=== PATIENT | female | born 1995 | race Caucasian/White ===

== ENCOUNTER 2018-02-04 10:52 | Emergency (ER) | payer BC ==
[2018-02-04] MEDS ORDERED: NS 1,000 ML IV ONE (11:20)
[2018-02-04] MEDS ORDERED: BENZOCAINE UNIT DOSE SPRAY HURRICAINE MM ONE ×2 (11:20→11:57)
[2018-02-04] MEDS ORDERED: ONDANSETRON 4 MG/2 ML VIAL IVP ONE (11:20)
--- NOTE | 2018-02-04 11:27 | EDPHY ---
H & P Stated Complaint: n/v, ST Time Seen by Provider: 02/04/18 11:14 HPI/ROS: CHIEF COMPLAINT: Vomiting, possible hematemesis HISTORY OF PRESENT ILLNESS: 22-year-old female generally healthy with no coagulopathic disorder, no history of chronic abdominal issues, arrives via private vehicle. She states that she ate a normal dinner was feeling well yesterday at 1:00 a.m. She woke up with nausea and vomited a black color. She had further episodes of vomiting and noticed a reddish coloration possibly blood. Her boyfriend is with her and looked in her posterior oropharynx and noticed an area of friability on the left tonsil. No abdominal pain. Normal bowel movement this morning. No melena or hematochezia PRIMARY CARE PROVIDER:None REVIEW OF SYSTEMS: 10 systems reviewed and negative with the exception of the elements mentioned in the history of present illness PAST MEDICAL & SURGICAL HISTORY: No pertinent medical or surgical history SOCIAL HISTORY: Nonsmoker PHYSICAL EXAM (Prior to examination, patient consented to physical exam, hands were washed and my usual and customary physical exam procedures followed) 1) GENERAL: Well-developed, well-nourished, alert and oriented. Appears to be in no acute distress. 2) HEAD: Normocephalic, atraumatic 3) HEENT: Pupils equal, round, reactive to light bilaterally. Sclera anicteric. On the patient's left tonsil there is friable tonsillar lesion, Moist Mucous membranes. Ears bilaterally with normal tympanic membranes. No evidence of otitis media otitis externa 4) NECK: Full range of motion, no meningeal signs. 5) LUNGS: Clear auscultation bilaterally, no wheezes, no rhonchi, no retractions. 6) HEART: Regular rate and rhythm, no murmur, no heave, no gallop. 7) ABDOMEN: No guarding, no rebound, no focal tenderness, negative McBurney's, negative Oneil's, negative Rovsing's, negative peritoneal sign, 8) MUSCULOSKELETAL: Moving all extremities, no focal areas of tenderness, no obvious trauma. No peripheral edema or discoloration. 9) BACK: No CVA tenderness, no midline vertebral tenderness, no fluctuance, no step-off, no obvious trauma, no visual or palpable abnormality. 10) SKIN: No rash, no petechiae. 11) Psychiatric: Patient is oriented X 3, there is no agitation. DIFFERENTIAL DIAGNOSIS: In no particular order including but not limited to Boerhaaves syndrome, Sejal-Olvera tear bleeding tonsillar lesion, malignancy - Personal History LMP (Females 10-55): Over 28 Days Ago Current Tetanus/Diphtheria Vaccine: Yes Current Tetanus Diphtheria and Acellular Pertussis (TDAP): Yes - Medical/Surgical History Hx Asthma: No Hx Chronic Respiratory Disease: No Hx Diabetes: No Hx Cardiac Disease: No Hx Renal Disease: No Hx Cirrhosis: No Hx Alcoholism: No Hx HIV/AIDS: No Hx Splenectomy or Spleen Trauma: No Other PMH: ear tubes - Social History Smoking Status: Never smoked Constitutional: Initial Vital Signs Temperature (C) 36.8 C 02/04/18 10:57 Heart Rate 88 02/04/18 10:57 Respiratory Rate 16 02/04/18 10:57 Blood Pressure 132/96 H 02/04/18 10:57 O2 Sat (%) 98 02/04/18 10:57 O2 Delivery Mode Room Air Allergies/Adverse Reactions: No Known Allergies Allergy (Unverified 02/04/18 10:56) Home Medications: Medication Instructions Recorded Claritin 02/04/18 LEVONORGESTREL-ETH ESTRA 02/04/18 Ondansetron Odt [Zofran Odt] 4 mg PO Q4PRN PRN #10 tab 02/04/18 Tums 500MG (*) 02/04/18 Medical Decision Making ED Course/Re-evaluation: Patient was re-evaluated with serial exams. She is tolerating oral intake. Normal H&H. Hemodynamically stable. She felt relief with GI cocktail. Doubt acute pancreatitis. Doubt acute surgical abdominal pathology. Doubt GI bleed. Doubt Boerhaave, doubt Sejal-Olvera. Patient is noted to have a friable left tonsillar lesion. I have recommended consultation with Ent. The patient has no primary care provider. Will consult with ear nose and throat 1258 p.m.: Phone consultation with PRAKASH Vazquez with [facility] regarding the patient's left tonsillar lesion which is friable I suspect was a source of active bleeding, currently hemostatic. 1:03 p.m. Patient was re-evaluated with serial examination. She continues to appear well at this time. She feels comfortable being discharged will go directly to [facility] ear nose and throat.. I saw this patient independently based on established practice protocols. Care of patient under supervision of secondary supervising physician Dr Montelongo with whom I discussed case. - Data Points Laboratory Results: Laboratory Results 02/04/18 11:45 02/04/18 11:45 02/04/18 02/04/18 02/04/18 11:45 11:45 11:45 WBC 6.25 10^3/uL 10^3/uL (3.80-9.50) RBC 4.78 10^6/uL 10^6/uL (4.18-5.33) Hgb 14.4 g/dL g/dL (12.6-16.3) Hct 43.0 % % (38.0-47.0) MCV 90.0 fL fL (81.5-99.8) MCH 30.1 pg pg (27.9-34.1) MCHC 33.5 g/dL g/dL (32.4-36.7) RDW 12.7 % % (11.5-15.2) Plt Count 284 10^3/uL 10^3/uL (150-400) MPV 9.6 fL fL (8.7-11.7) Neut % (Auto) 50.3 % % (39.3-74.2) Lymph % (Auto) 38.7 % % (15.0-45.0) Gage % (Auto) 6.2 % % (4.5-13.0) Eos % (Auto) 3.5 % % (0.6-7.6) Baso % (Auto) 0.8 % % (0.3-1.7) Nucleat RBC Rel Count 0.0 % % (0.0-0.2) Absolute Neuts (auto) 3.14 10^3/uL 10^3/uL (1.70-6.50) Absolute Lymphs (auto) 2.42 10^3/uL 10^3/uL (1.00-3.00) Absolute Monos (auto) 0.39 10^3/uL 10^3/uL (0.30-0.80) Absolute Eos (auto) 0.22 10^3/uL 10^3/uL (0.03-0.40) Absolute Basos (auto) 0.05 10^3/uL 10^3/uL (0.02-0.10) Absolute Nucleated RBC 0.00 10^3/uL 10^3/uL (0-0.01) Immature Gran % 0.5 % % (0.0-1.1) Immature Gran # 0.03 10^3/uL 10^3/uL (0.00-0.10) Sodium 140 mEq/L mEq/L (135-145) Potassium 4.3 mEq/L mEq/L (3.3-5.0) Chloride 106 mEq/L mEq/L (97-110) Carbon Dioxide 25 mEq/l mEq/l (22-31) Anion Gap 9 mEq/L mEq/L (8-16) BUN 11 mg/dL mg/dL (7-23) Creatinine 0.8 mg/dL mg/dL (0.6-1.0) Estimated GFR > 60 Glucose 88 mg/dL mg/dL (70-100) Calcium 9.6 mg/dL mg/dL (8.5-10.4) Total Bilirubin 0.7 mg/dL mg/dL (0.1-1.4) Conjugated Bilirubin 0.1 mg/dL mg/dL (0.0-0.5) Unconjugated Bilirubin 0.6 mg/dL mg/dL (0.0-1.1) AST 26 IU/L IU/L (14-46) ALT 33 IU/L IU/L (9-52) Alkaline Phosphatase 62 IU/L IU/L (38-126) Total Protein 6.9 g/dL g/dL (6.3-8.2) Albumin 4.0 g/dL g/dL (3.5-5.0) Lipase 57 IU/L IU/L (23-300) Beta HCG, Qual NEGATIVE Medications Given: Discontinued Medications Al Hydroxide/Mg Hydroxide (Maalox Susp) 30 ml PO ONCE ONE Stop: 02/04/18 12:32 Last Admin: 02/04/18 12:35 Dose: 30 ml Benzocaine (Hurricaine Pawling) 1 each MM EDNOW ONE Stop: 02/04/18 11:21 Last Admin: 02/04/18 11:46 Dose: 1 each Hyoscyamine Sulfate (Levsin, Hyomax-Sl) 0.25 mg PO ONCE ONE Stop: 02/04/18 12:32 Last Admin: 02/04/18 12:35 Dose: 0.25 mg Sodium Chloride (Ns) 1,000 mls @ 0 mls/hr IV EDNOW ONE; Wide Open PRN Reason: Protocol Stop: 02/04/18 11:21 Last Admin: 02/04/18 11:46 Dose: 1,000 mls Lidocaine (Lidocaine 2% Viscous) 15 ml PO ONCE ONE Stop: 02/04/18 12:32 Last Admin: 02/04/18 12:35 Dose: 15 ml Ondansetron HCl (Zofran) 4 mg IVP EDNOW ONE Stop: 02/04/18 11:21 Last Admin: 02/04/18 11:46 Dose: 4 mg Departure - Departure Disposition: Home, Routine, Self-Care Clinical Impression: Tonsillar bleed Condition: Good Instructions: Tonsillitis (ED) Additional Instructions: Go directly to [facility] Referrals: Taylor Ny, PAC [Physician [employer]] - 02/04/18 1:30 pm Prescriptions: Ondansetron Odt [Zofran Odt] 4 mg PO Q4PRN PRN #10 tab PRN Reason: Nausea
[2018-02-04 12:08] LABS: PLATELET COUNT 284 10^3/uL (150-400)
[2018-02-04] MEDS ORDERED: HYOSCYAMINE SULFATE 0.125 MG TAB PO ONE (12:31)
[2018-02-04] MEDS ORDERED: MAG HYDROX/AL HYDROX/SIMETH 30 ML UDCUP PO ONE (12:31)
[2018-02-04] MEDS ORDERED: LIDOCAINE 2% VISCOUS 15 ML UDCUP PO ONE (12:31)
[2018-02-04 13:13] VITALS: BP 107/77
== END 2018-02-04 13:12 | disposition home or self-care (01) ==
DX: J35.8 Other chronic diseases of tonsils and adenoids (principal)
CPT/HCPCS: 96374; J2405